=== PATIENT | male | born 1975 | race Caucasian/White ===

== ENCOUNTER 2017-09-05 14:19 | Emergency (ER) | payer MEDICAID ==
[~2017-09-05] VITALS: Ht 182.9 cm; Wt 90.7 kg
[2017-09-05 15:00] VITALS: BP 152/106
[2017-09-05] MEDS ORDERED: FLUORESCEIN OPHTH TEST STRIP. OS ONE (15:15)
[2017-09-05] MEDS ORDERED: TETRACAINE 0.5% OPHTH SOLUTION 4ML BOTTLE. OS ONE (15:15)
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
== END 2017-09-05 15:57 | disposition home or self-care (01) ==
LOC: ER 14:19
DX: S05.02XA Injury of conjunctiva and corneal abrasion without foreign body, left eye, initial encounter (principal); F43.10 Post-traumatic stress disorder, unspecified; X58.XXXA Exposure to other specified factors, initial encounter; Y93.89 Activity, other specified; Y99.8 Other external cause status; Y92.89 Other specified places as the place of occurrence of the external cause
CPT/HCPCS: 99283